=== PATIENT | female | born 1940 | race Caucasian/White ===

== ENCOUNTER → 2016-09-17 | Outpatient (CLI) | payer BC ==
[~2016-09-17] MED LIST: ASPEC81 PO; ASPI81TA28 PO; CALC600T9 PO; CHOL1000 PO; CLR10 PO; LEVO100T PO; LPR25 PO; MELO7.5T5 PO; MULT-506 PO; PRT/20 PO; ZOLE5INJ IV
== END | disposition home or self-care (01) ==
LOC: C.PATHSPEC 17:36
PROVIDERS: ATTEND Plastic Surgery
DX: D23.72 Other benign neoplasm of skin of left lower limb, including hip (principal)

== ENCOUNTER → 2016-09-28 | Outpatient (CLI) | payer BC ==
--- NOTE | 2016-09-28 13:11 | MAMMOGRAPHY REPORT ---
BILATERAL DIGITAL DIAGNOSTIC MAMMOGRAM TOMOSYNTHESIS WITH CAD: 09/28/2016 CLINICAL HISTORY: Short interval follow-up of left breast calcifications. Due for routine right vaibhav mography. TECHNIQUE: Breast tomosynthesis in addition to standard 2D mammography was performed. Current study was also evaluated with a Computer Aided Detection (CAD) system. Bilateral CC and MLO 2-D and devon synthesis images and spot magnification left CC and ML views were obtained. COMPARISON: Comparison is made to exams dated: 04/10/2016 mammogram, 10/05/2015 mammogram, 09/26/2015 mammogram, 09/23/2014 mammogram, 09/22/2013 mammogram, and 09/18/2012 mammogram - [facility]. BREAST COMPOSITION: There are scattered areas of fibroglandular density in both breasts. FINDINGS: Spot magnification views of the left breast again demonstrate 2 loose groupings of punctat e benign appearing calcifications in the left lower inner quadrant, which are stable on spot magnifi cation views dating back to September 2015. Additionally, calcifications have been present in this region on other prior exams including the 2013 exam. Given the stability and benign morphology, the calci fications are considered benign. The remainder of both breasts are stable compared to prior exams, without suspicious masses, calcifi cations, or areas of architectural distortion noted. Other scattered bilateral benign appearing dheeraj cifications are not significantly changed. Bilateral nodular asymmetries anteriorly are stable. IMPRESSION: ACR BI-RADS CATEGORY 2: BENIGN The loosely grouped punctate benign-appearing calcifications in the left lower inner quadrant are st able dating back to at least the September 2015 exam, and are considered benign given long-term stability and benign morphology. There is no mammographic evidence of malignancy in either breast. A 1 year s creening mammogram is recommended. The patient has been verbally notified of the results. Approximately 10% of breast cancers are not detected with mammography. A negative mammographic repor t should not delay biopsy if a clinically suggestive mass is present. Melony Moss M.D. /:09/28/2016 11:33:17 [employer]: Niru HOBBS(Naren)(Junie), [facility] letter sent: Normal 1/2 BI-RADS Code: ACR BI-RADS Category 2: Benign
== END | disposition home or self-care (01) ==
LOC: C.MAMM 11:00
PROVIDERS: ATTEND Obstetrics & Gynecology
DX: R92.1 Mammographic calcification found on diagnostic imaging of breast (principal)

== ENCOUNTER → 2017-01-10 | Outpatient (CLI) | payer BC ==
[~2017-01-10] MED LIST changes: -ASPI81TA28 PO; -CALC600T9 PO; -CHOL1000 PO; -CLR10 PO; -ZOLE5INJ IV
== END | disposition home or self-care (01) ==
LOC: C.PAPS 14:10
PROVIDERS: ATTEND Obstetrics & Gynecology
DX: N83.202 Unspecified ovarian cyst, left side (principal); N95.2 Postmenopausal atrophic vaginitis

== ENCOUNTER → 2017-03-29 | Day surgery (SDC) | payer BC ==
[2017-03-21 09:56] VITALS: Ht 167.6 cm; Wt 90.9 kg
[~2017-03-29] VITALS: Ht 167.6 cm; Wt 90.9 kg
[~2017-03-29] MED LIST changes: -ASPEC81 PO; +ASPI81TA28 PO; +ATROPINE SULFATE 0.1 MG/ML 5ML SYR IV PRN; +CALC600T9 PO; +CHOL1000 PO; +CLR10 PO; +EpHEDrine SULFATE INJ 50 MG/ML AMP IV PRN; +LIDOCAINE HCL 2% 2 ML VIAL (20MG/ML) ONE; +MIDAZOLAM HCL 1 MG/ML 2ML VIAL ONE; +ONDANSETRON INJ 2 MG/ML 2 ML VIAL ONE; +PROPOFOL IV EMULSION 10 MG/ML 20 ML VIAL IV ONE; +SODIUM CHLORIDE 0.9% 500ML 500 ML IV ONE; +ZOLE5INJ IV
--- NOTE | 2017-03-29 10:49 | Endo History and Physical ---
History & Physical Date of Service: Mar 29, 2017. Chief Complaint: Reflux Referring Physician: Dr. Juan Ramon Salvador History of Present Illness patient with heartburn and bloating. Past Surgical History Hx Cardiac Surgery: No Hx Internal Defibrillator: No Hx Pacemaker: No Hx Abdominal Surgery: Yes (OOPHORECTOMY) Hx of Implantable Prosthesis: No Hx Post-Op Nausea and Vomiting: No Hx Cancer Surgery: No Hx Thoracic Surgery: No Hx Orthopedic: Yes (LT/RT CTR, RT SHOULDER, LOW BACK SURGERY X2, RT KNEE) Hx Urinary Tract Surgery: No Family History Polyp Social History Smoking Status: Former Smoker Hx Substance Use: No Hx Alcohol Use: Yes (1 GLASS WINE DAILY) Allergies Coded Allergies: [place] (Verified Allergy, Intermediate, rash, 03/21/17) Shellfish (Verified Allergy, Intermediate, hives, 03/21/17) NO KNOWN DRUG ALLERGIES (Verified Allergy, Unknown, ., 03/21/17) Current Medications Reported Home Medications Medications Dose Route/Sig Max Daily Dose Days Date Category Reclast (Zoledronic Acid) 5 Mg/100 Ml Inj 1 Dose IV YEARLY 03/21/17 Reported Aspirin Ec (Aspirin) 81 Mg Tab 81 Mg PO QAM 03/21/17 Reported Calcium + D (Calcium Carbonate-Vitamin D) 1 Tab Tab 1 Tab PO DAILY 03/21/17 Reported Vitamin D3 (Cholecalciferol) 1,000 Unit Tab 1 Tab PO DAILY 03/21/17 Reported Claritin (Loratadine) 10 Mg Tab 10 Mg PO QAM 03/21/17 Reported Lopressor (Metoprolol Tartrate) 25 Mg Tab 0.5 Tab PO QAM 06/08/14 Reported Synthroid (Levothyroxine Sodium) 100 Mcg Tab 100 Mcg PO QAM 06/08/14 Reported Protonix (Pantoprazole Sodium) 20 Mg Tab 2 Tabs PO QPM 06/08/14 Reported Mobic (Meloxicam) 7.5 Mg Tab 7.5 Mg PO QPM 06/08/14 Reported Multivitamin (Multivitamins) Tab 1 Tab PO DAILY 02/21/10 Reported Vital Signs Weight (Kilograms): 90.91 Height (Feet): 5 Height (Inches): 6 Date Time Temp Pulse Resp B/P (MAP) Pulse Ox O2 Delivery O2 Flow Rate FiO2 03/29/17 10:30 36.6 63 20 165/76 (105) 96 Room Air Physical Exam General Appearance: no apparent distress Respiratory/Chest: Auscultation: breath sounds normal Cardiovascular: Heart Auscultation: RRR Abdomen: Inspection & Palpation: soft Liver: non-tender Assessment and Plan stable for EGD
--- NOTE | 2017-03-29 11:25 | Anesthesiology Progress Note ---
Anesthesia Post Op Note Date & Time Mar 29, 2017 at 11:25 Vital Signs Pain Intensity: 0 Vital Signs Past 12 Hours Date Time Temp Pulse Resp B/P (MAP) Pulse Ox O2 Delivery O2 Flow Rate FiO2 03/29/17 11:20 58 16 131/76 (94) 96 Room Air 03/29/17 10:30 36.6 63 20 165/76 (105) 96 Room Air Notes Mental Status: alert / awake / arousable, participated in evaluation Pt Amnestic to Procedure: Yes Nausea / Vomiting: adequately controlled Pain: adequately controlled Airway Patency, RR, SpO2: stable & adequate BP & HR: stable & adequate Hydration State: stable & adequate Anesthetic Complications: no major complications apparent
--- NOTE | 2017-03-29 11:26 | Discharge Instructions ---
Endoscopy Patient Instructions Date / Procedure(s) Performed Mar 29, 2017. EGD Allergy Information Coded Allergies: [place] (Verified Allergy, Intermediate, rash, 03/21/17) Shellfish (Verified Allergy, Intermediate, hives, 03/21/17) NO KNOWN DRUG ALLERGIES (Verified Allergy, Unknown, ., 03/21/17) Discharge Date / Findings Mar 29, 2017. normal EGD/ no ulcers seen. Medication Instructions Stopped Medication(s): Patient held her aspirin and supplements this am. Provider Instructions Activity Restrictions - No exercising or heavy lifting for 24 hours. - Do not drink alcohol the day of the procedure. - Do not drive a car or operate machinery until the day after the procedure. - Do not make any important decisions or sign important papers in 24 hours after the procedure. Following Day: - Return to full activity which may include returning to work/school. Diet Start your diet with liquids and light foods (jello, soup, juice, toast). Then eat your usual diet if not nauseated. Treatment For Common After Affects For mild abdominal pain, bloating, or excessive gas: - Rest - Eat lightly - Lie on right side Follow-Up Information Follow-up with Dr. Juan Ramon Salvador as scheduled Anesthesia Information What You Should Know You have had a procedure that required some medicine to reduce anxiety and discomfort. This treatment is called moderate sedation. After receiving the treatment, you may be sleepy, but you will be able to breathe on your own. The effects of the treatment may last for several hours. Follow these instructions along with Activity/Diet recommendations noted above: * Do NOT do anything where dizziness or clumsiness would be dangerous. * Rest quietly at home today, then you can be up and about tomorrow. * Have a responsible person stay with you the rest of today. * You may have had an I.V. today. If so, you may take the dressing off later today. Recommendations Call your doctor if: * Trouble breathing * Continuous vomiting for more than 24 hours * Temperature above 101 degrees * Severe abdominal pain or bloating * Pain not relieved by pain medicine ordered * There is increased drainage or redness from any incision * A large amount of rectal bleeding greater than 2-3 tablespoons. (If you had a polyp/s removed or have hemorrhoids, a small amount of blood - from the rectum is to be expected.) * You have any unanswered questions or concerns. IN THE EVENT OF A SERIOUS EMERGENCY, GO TO THE NEAREST EMERGENCY ROOM Your discharge instructions were prepared by provider Vladimir Noonan. Patient Instructions Signature Page Maile Sellers Patient (or Guardian) Signature/Date: I have read and understand the instructions given to me by my caregivers. Caregiver/RN/Doctor Signature/Date: The above-named patient and/or guardian has received patient instructions on this date. + Original Patient Signature Page (only) stays with chart. Please make copy for patient.
[2017-03-29 11:49] VITALS: BP 133/65; PULSE 56; O2SAT 95
--- NOTE | 2017-03-29 14:00 | GI REPORT ---
Procedure Date: 03/29/2017 11:00 AM Procedure: Upper GI endoscopy Indications: Heartburn Medicines: See the Anesthesia note for documentation of the administered medications Complications: No immediate complications. Estimated Blood Loss: Estimated blood loss: none. Procedure: Pre-Anesthesia Assessment: - Prior to the procedure, a History and Physical was performed, and patient medications, allergies and sensitivities were reviewed. The patient's tolerance of previous anesthesia was reviewed. - The risks and benefits of the procedure and the sedation options and risks were discussed with the patient. All questions were answered and informed consent was obtained. - Patient identification and proposed procedure were verified prior to the procedure by the physician and the nurse. The procedure was verified in the pre-procedure area. - Pre-procedure physical examination revealed no contraindications to sedation. - After reviewing the risks and benefits, the patient was deemed in satisfactory condition to undergo the procedure. After obtaining informed consent, the endoscope was passed under direct vision. Throughout the procedure, the patient's blood pressure, pulse, and oxygen saturations were monitored continuously. The On-site loaner was introduced through the mouth, and advanced to the third part of duodenum. The upper GI endoscopy was accomplished without difficulty. The patient tolerated the procedure well. Findings: The esophagus was normal. The stomach was normal. The examined duodenum was normal. The cardia and gastric fundus were normal on retroflexion. Impression: - Normal esophagus. - Normal stomach. - No ulcers seen. - Normal examined duodenum. - No specimens collected. Recommendation: - Discharge patient to home. Vladimir Noonan M.D. Vladimir Noonan MD 03/29/2017 11:27:48 AM This report has been signed electronically. Note Initiated On: 03/29/2017 11:00 AM I attest to the content of the Intraoperative Record and orders documented therein, exceptions below
== END | disposition home or self-care (01) ==
LOC: C.GI 10:12
PROVIDERS: ATTEND Internal Medicine Gastroenterology
DX: R12 Heartburn (principal); Z87.891 Personal history of nicotine dependence; Z79.899 Other long term (current) drug therapy